=== PATIENT | female | born 1985 | race Caucasian/White ===

== ENCOUNTER → 2020-12-26 | Outpatient (CLI) | payer BC ==
--- NOTE | 2020-12-27 08:35 | US ---
EXAMINATION TYPE: US thyroid st tissue head/neck DATE OF EXAM: 12/26/2020 COMPARISON: NONE CLINICAL HISTORY: E04.1 SINGLE THYROID NODULE. Enlarged thyroid. Abnormal labs. GLAND SIZE: Right Lobe: 6.4 x 4.0 x 3.3 cm Overall Parenchyma: heterogenous Left Lobe: 6.3 x 2.9 x 3.1 cm Overall Parenchyma: heterogeneous Isthmus Thickness: 2.7 cm NODULES RIGHT: # of nodules measured on right: 2 1. 3.2 X 2.4 x 2.4 cm, mid lateral, solid or almost completely solid, isoechoic nodule, which is wi de as tall, with smooth margins, without echogenic foci. Prior size: No prior 2. 0.5 X 0.5 x 0.4 cm, mid medial, solid or almost completely solid, hypoechoic nodule, which is wi wale than tall, with smooth margins, with peripheral echogenic rim. Prior size: No prior LEFT: # of nodules measured on left: 0 ISTHMUS: # of nodules measured in the isthmus: 0 1. 3.4 X 3.2 x 2.1 cm solid or almost completely solid, hypoechoic nodule, which is wider than tall , with smooth margins, without echogenic foci. Prior size: No prior Bilateral neck scanned, no evidence of lymphadenopathy. IMPRESSION: Mildly suspicious nodule right lobe thyroid. Fine-needle aspiration is recommended. 2017 ACR TI-RADS LEVEL: TR-RADS 3 - Mildly Suspicious: Follow if > 1.5 cm, FNA if > 2.5 cm *Highest TI-RADS level nodule reported
== END | disposition home or self-care (01) ==
LOC: RADUSWWP 14:51
PROVIDERS: ATTEND Family Medicine
DX: E04.1 Nontoxic single thyroid nodule (principal); E04.9 Nontoxic goiter, unspecified
CPT/HCPCS: 76536

== ENCOUNTER → 2021-01-23 | Outpatient (CLI) | payer BC | END | disposition home or self-care (01) | DX: E04.2 Nontoxic multinodular goiter (principal) | CPT/HCPCS: 84439; 84481; 78013; A9512 ==

== ENCOUNTER → 2021-01-30 | Outpatient (CLI) | payer BC ==
--- NOTE | 2021-01-30 09:08 | CT ---
EXAMINATION TYPE: CT iac wo con DATE OF EXAM: 01/30/2021 COMPARISON: None HISTORY: Unspecified cholesteatoma, left ear. Dizziness and hearing loss CT DLP: 150mGycm Automated exposure control for dose reduction was used. FINDINGS: The external auditory canals are patent bilaterally. There is surrounding tissue noted ab out the left moderate opacification left-sided mastoid air cells. The scutum is preserved bilaterally . The cochlea and the semicircular canals are symmetric and unremarkable. Vestibular aqueduct and i nternal carotid canal appear unremarkable. Temporomandibular joints are maintained bilaterally. IMPRESSION: Findings suggest left-sided cholesteatoma and moderate left-sided mastoiditis
== END | disposition home or self-care (01) ==
LOC: RADCTMAIN 08:24
PROVIDERS: ATTEND Otolaryngology
DX: H71.92 Unspecified cholesteatoma, left ear (principal); H70.92 Unspecified mastoiditis, left ear
CPT/HCPCS: 70480

== ENCOUNTER → 2022-10-19 | Outpatient (CLI) | payer BC ==
--- NOTE | 2022-10-19 20:19 | CT ---
EXAMINATION TYPE: CT iac wo con DATE OF EXAM: 10/19/2022 COMPARISON: Prior CT IAC January 30, 2021 HISTORY: Left ear cyst on tympanic membrane CT DLP: 150 mGycm. Automated Exposure Control for Dose Reduction was Utilized. TECHNIQUE: CT scan of internal auditory canal is performed without contrast, thin cut axial images ar e obtained, coronal reformatted images are also reviewed. FINDINGS: The external auditory canals remain patent bilaterally. Mastoid air cells redemonstrate sc lerosis and complete opacification similar to prior. Persistent abnormal soft tissue surrounding the left middle ear ossicles. No suspicious opacification surrounding the right-sided middle ear ossicles . The scutum is preserved bilaterally. The cochlea and the semicircular canals are symmetric and unremarkable. Satisfactory bony overcoverag e of the superior semicircular canal bilaterally. No dehiscence. Vestibular aqueduct and internal car otid canal appear unremarkable bilaterally. Temporomandibular joints are maintained bilaterally. Visualized paranasal sinuses are grossly clear. Visualized portion brain parenchyma is felt within normal limits. IMPRESSION: Chronic mastoiditis bilaterally. Persistent left middle ear infection or cholesteatoma. N o significant change from prior.
== END | disposition home or self-care (01) ==
LOC: RADCTMAIN 16:39
PROVIDERS: ATTEND Otolaryngology Otology & Neurotology
DX: H70.13 Chronic mastoiditis, bilateral (principal); H71.12 Cholesteatoma of tympanum, left ear; H83.8X2 Other specified diseases of left inner ear
CPT/HCPCS: 70480

== ENCOUNTER 2023-07-24 12:49 | Day surgery (SDC) | payer BC ==
[2023-07-24 13:42] VITALS: RESP 18; TEMP 99.2
[2023-07-24 14:55] VITALS: BP 111/59; PULSE 77
--- NOTE | 2023-07-24 16:19 | US ---
EXAMINATION TYPE: US FNA thyroid first lesion DATE OF EXAM: 07/24/2023 2:07 PM CLINICAL INDICATION:Female, 38 years old with history of E04.1 NONTOXIC SINGLE THYROID NODULE; , thyr oid nodule. COMPARISON: 09/05/2022. ATTENDING: Dr. Robert Pelaez PROCEDURE: Informed consent was obtained. The risks and benefits of the procedure were discussed with the patien t. The site was marked. Timeout procedure was performed Ultrasound imaging of the thyroid demonstrates isthmus nodule The patient was prepped, draped in the usual sterile fashion, and locally anesthetized with 1% lidoca ine. Five fine needle aspiration were then performed with a 25 gauge needle. Samples were sent to [facility] pathology department for further analysis. Patient tolerated the procedure without incident and wa s sent home in stable condition. IMPRESSION: Successful ultrasound guided fine needle aspiration.
== END 2023-07-24 14:30 | disposition home or self-care (01) ==
LOC: RADPROMAIN 12:49
PROVIDERS: ATTEND Family Medicine
DX: E04.1 Nontoxic single thyroid nodule (principal)
CPT/HCPCS: 10005; 88173; 88305

== ENCOUNTER → 2024-09-15 | Outpatient (CLI) | payer OTHER ==
--- NOTE | 2024-09-22 12:27 | MM ---
Reason for Exam: Screening (asymptomatic). Baseline mammogram. Patient History: Menarche at age 9. First Full-Term at age 17. Last menstrual period: 08/31/2024 Risk Values: Karol 5 year model risk: 0.4%. NCI Lifetime model risk: 8.0%. Prior Study Comparison: Patient's first Mammogram. No prior studies available for comparison. Tissue Density: There are scattered areas of fibroglandular density. Findings: Analyzed By CAD. Right breast: There is no suspicious group of microcalcifications or new suspicious mass. Left breast: There is no suspicious group of microcalcifications or new suspicious mass. Overall Assessment: Negative, BI-RAD 1 Management: Screening Mammogram of both breasts in [address] [facility] will attempt to contact patient to return for supplemental views and ultrasound if indicated. Patient should continue monthly self-breast exams. A clinical breast exam by your physician is recommended on an annual basis. This exam should not preclude additional follow-up of suspicious palpable abnormalities. Note on Karol scores and lifetime risk: 1. A Karol score greater than 3% is considered moderate risk. If this is the case, consider specialist referral to assess eligibility for a risk reducing agent. 2. If overall lifetime risk for the development of breast cancer is 20% or higher, the patient may qualify for future screening with alternating mammogram and breast MRI. [facility], , 09/15/2024 10:00 AM. Electronically signed and approved by: Robert Pelaez DO
== END | disposition home or self-care (01) ==
LOC: RADMAMWWP 09:38
PROVIDERS: ATTEND Family Medicine
DX: Z12.31 Encounter for screening mammogram for malignant neoplasm of breast (principal); R92.323 Mammographic fibroglandular density, bilateral breasts
CPT/HCPCS: 77067

== ENCOUNTER → 2024-09-29 | Outpatient (CLI) | payer OTHER ==
--- NOTE | 2024-09-29 12:57 | US ---
EXAMINATION TYPE: US thyroid st tissue head/neck DATE OF EXAM: 09/29/2024 COMPARISON: Prior thyroid ultrasound September 05, 2022 CLINICAL INDICATION: Female, 39 years old with history of E04.1 NONTOXIC SINGLE THYROID NODULE; Follo w up nodule TECHNIQUE: Grayscale and color Doppler imaging of the thyroid gland. FINDINGS: GLAND SIZE: Right Lobe: 6.5 x 2.7 x 3.0 cm Overall Parenchyma: heterogeneous Left Lobe: 5.7 x 2.7 x 2.4 cm Overall Parenchyma: heterogeneous Isthmus Thickness: 0.6 cm NODULES RIGHT: # of nodules measured on right: 0 LEFT: # of nodules measured on left: 0 ISTHMUS: # of nodules measured in the isthmus: 1 1. 2.8 X 1.2 x 1.7 cm solid or almost completely solid, isoechoic nodule, which is wider than tall, with smooth margins, without echogenic foci. TR 3 lesion. Prior size: 3.3 x 2.4 x 2.4 cm Bilateral neck scanned, no evidence of lymphadenopathy. Heterogeneous slightly enlarged thyroid gland redemonstrated. IMPRESSION: As above. Stable isthmus solid nodule. This was sampled in the past. Correlate clinically. No new nod ules are seen. 2017 ACR TI-RADS LEVEL: TI-RADS 3 - Mildly Suspicious: Follow if > 1.5 cm, FNA if > 2.5 cm *Highest TI-RADS level nodule reported [email or web address] [facility], , 09/29/2024 12:54 PM
== END | disposition home or self-care (01) ==
LOC: RADUSWWP 10:40
PROVIDERS: ATTEND Family Medicine
DX: E04.1 Nontoxic single thyroid nodule (principal)
CPT/HCPCS: 76536